=== PATIENT | female | born 1940 | race Hispanic/Latino ===

== ENCOUNTER 2017-06-16 18:07 | Emergency (ER) | payer MEDICARE ==
--- NOTE | 2017-06-16 20:36 | XRay Report ---
FINAL REPORT EXAM: XR ELBOW 2V RT HISTORY: right elbow pain sp fall TECHNIQUE: Right elbow two views 2 images PRIORS: None. FINDINGS: Bone mineralization appears within normal limits. There is a transverse intra-articular fracture of the proximal with approximately 10 millimeters of distraction. Soft tissue swelling is noted adjacent to the elbow. IMPRESSION: 1. Traumatic intra-articular fracture of the proximal ulna.
[2017-06-16] MEDS ORDERED: TYLENOL PO ONE (22:14)
--- NOTE | 2017-06-16 22:16 | Cat Scan Report ---
FINAL REPORT EXAM: CT HEAD/BRAIN WO CON HISTORY: status post [facility] patient is ciera TECHNIQUE: Noncontrast serial axial images from skull base to vertex PRIORS: None. FINDINGS: The study is slightly degraded by motion artifact. There is moderate atrophy. There is no mass effect or midline shift. There are no abnormal intra or extra-axial fluid collections. Lateral ventricles are enlarged, but this appears similar to the prior study. Basilar cisterns are patent. No acute intracranial hemorrhage is identified. Areas of relative hypodensity are seen in the white matter of the cerebral hemispheres. Atherosclerotic changes are noted. Visualized paranasal sinuses and mastoid air cells are well aerated. No acute osseous abnormality is identified. IMPRESSION: 1. No acute intracranial hemorrhage is identified. 2. Areas of relative hypodensity are seen in the white matter of the cerebral hemispheres. This is a nonspecific finding. It may be related to chronic ischemic change from small vessel disease. 3. Enlarged lateral ventricles are again noted. This is similar to the prior study.
[2017-06-16 22:35] VITALS: BP 117/54
--- NOTE | 2017-06-16 22:46 | XRay Report ---
FINAL REPORT EXAM: XR SHOULDER 2+V RT HISTORY: shoulder pain after fall TECHNIQUE: Right shoulder two views 2 images PRIORS: None. FINDINGS: Visualized portion of the right lung appears clear. Bone mineralization appears within normal limits. There is slightly irregular contour in the cortex along the distal aspect of the right clavicle. No gross abnormality seen in the soft tissues. IMPRESSION: 1. Possible minimally displaced fracture of the distal right clavicle.
--- NOTE | 2017-06-16 22:51 | XRay Report ---
FINAL REPORT EXAM: XR HIPS BILAT 2V W/PELVIS HISTORY: hip pain after fall TECHNIQUE: Single-view pelvis with additional views of the hips. 5 images PRIORS: None. FINDINGS: Sequelae from left hip arthroplasty are noted. Bone mineralization appears within normal limits. The pelvic ring appears intact. No acute fracture or subluxation is identified. No gross abnormality is seen in the soft tissues. IMPRESSION: 1. No acute osseous abnormality is identified.
--- NOTE | 2017-06-16 22:53 | XRay Report ---
FINAL REPORT EXAM: XR HUMERUS 1V RT HISTORY: arm pain after fall TECHNIQUE: Right humerus single-view 1 image PRIORS: Right elbow radiograph from 06/16/2017 FINDINGS: Visualized portion of the right lung is clear. Previously described proximal ulna fracture is re-identified. No acute fracture is identified in the humerus. Orthogonal view is not provided. The distal aspect of the humerus is obscured by the proximal radius and ulna. There is soft tissue swelling adjacent to the elbow. IMPRESSION: 1. Proximal ulna fracture is again noted. This is better evaluated in the dedicated elbow series. 2. No definite acute fracture is identified in the right humerus. Orthogonal view is not provided.
--- NOTE | 2017-06-16 22:55 | XRay Report ---
FINAL REPORT EXAM: XR CHEST 1V AP HISTORY: CP after fall TECHNIQUE: Single-view chest PRIORS: None. FINDINGS: No focal consolidations are seen in the lungs.The cardiomediastinal silhouette is within normal limits for size and contour. There is irregular contour of the distal right clavicle. IMPRESSION: 1. No definite radiographic evidence of acute cardiopulmonary disease. 2. Possible distal right clavicle fracture.
--- NOTE | 2017-06-16 23:10 | Emergency Department Report ---
ED Fall HPI - General Chief Complaint: Extremity Injury, Upper Stated Complaint: RT ARM PAIN Time Seen by Provider: 06/16/17 22:02 Source: EMS Mode of arrival: Stretcher Limitations: Altered Mental Status (chronic dementia) - History of Present Illness Initial Comments: 77 yo female with a past medical history of dementia, arthritis, hypertension, depression, anxiety, and hypothyroidism [facility] a ground-level fall and right elbow pain and swelling. custodial sheet not available for review. Patient unable to give any history of present illness due to advanced dementia. No details regarding head injury or LOC provided by [facility]. Patient does not appear any distress. Appears agitated, rapid intermittent pursed lip breathing which as per nursing EMS reports that as a home states this is her baseline - Related Data Home Medications Medication Instructions Recorded Confirmed Last Taken ALBUTEROL NEB's [Proventil] 2.5 mg IH BID PRN 04/24/16 04/24/16 04/24/16 ALBUTEROL NEB's [Proventil] 2.5 mg IH QDAY 04/24/16 04/24/16 04/24/16 ALPRAZolam [Xanax TAB] 0.25 mg PO Q6H PRN 04/24/16 04/24/16 04/24/16 Citalopram [celeXA] 40 mg PO QDAY 04/24/16 04/24/16 04/24/16 Docusate Sodium [Colace] 100 mg PO QDAY PRN 04/24/16 04/24/16 Unknown Donepezil [Aricept] 10 mg PO QHS 04/24/16 04/24/16 04/23/16 Fluticasone/Salmeterol [Advair 1 puff INHALATION QDAY 04/24/16 04/24/16 04/24/16 250-50 Diskus] Gabapentin [Neurontin] 300 mg PO QDAY 04/24/16 04/24/16 04/24/16 Levothyroxine [Synthroid] 100 mcg PO QAM 04/24/16 04/24/16 04/24/16 Lisinopril [Zestril] 20 mg PO QDAY 04/24/16 04/24/16 04/24/16 Meloxicam [Mobic] 15 mg PO QDAY 04/24/16 04/24/16 04/24/16 Olanzapine [OLANZapine] 2.5 mg PO QHS 04/24/16 04/24/16 04/22/16 Pregabalin [Lyrica] 75 mg PO QHS 04/24/16 04/24/16 04/23/16 Simvastatin [Zocor TAB] 20 mg PO QHS 04/24/16 04/24/16 04/24/16 buPROPion SR [Wellbutrin Sr] 150 mg PO BID 04/24/16 04/24/16 04/23/16 traMADol [Ultram] 50 mg PO Q6HR PRN 04/24/16 04/24/16 Unknown traZODone [Desyrel] 100 mg PO QHS 04/24/16 04/24/16 04/24/16 Allergies Allergy/AdvReac Type Severity Reaction Status Date / Time codeine Allergy Unknown Verified 04/24/16 19:15 ED Review of Systems ROS: Stated complaint: RT ARM PAIN Other details as noted in HPI Comment: Unobtainable due to pts medical conditions ED Past Medical Hx - Past Medical History Hx Hypertension: Yes Hx Arthritis: Yes Hx Psychiatric Treatment: Yes (depression, anxiety) Hx Dementia: Yes Additional medical history: neuropathy, hypothyroidism - Surgical History Hx Cholecystectomy: Yes - Social History Smoking Status: Unknown if ever smoked Substance Use Type: None - Medications Home Medications: Home Medications Medication Instructions Recorded Confirmed Last Taken Type ALBUTEROL NEB's [Proventil] 2.5 mg IH BID PRN 04/24/16 04/24/16 04/24/16 History ALBUTEROL NEB's [Proventil] 2.5 mg IH QDAY 04/24/16 04/24/16 04/24/16 History ALPRAZolam [Xanax TAB] 0.25 mg PO Q6H PRN 04/24/16 04/24/16 04/24/16 History Citalopram [celeXA] 40 mg PO QDAY 04/24/16 04/24/16 04/24/16 History Docusate Sodium [Colace] 100 mg PO QDAY PRN 04/24/16 04/24/16 Unknown History Donepezil [Aricept] 10 mg PO QHS 04/24/16 04/24/16 04/23/16 History Fluticasone/Salmeterol [Advair 1 puff INHALATION QDAY 04/24/16 04/24/16 History 250-50 Diskus] Gabapentin [Neurontin] 300 mg PO QDAY 04/24/16 04/24/16 04/24/16 History Levothyroxine [Synthroid] 100 mcg PO QAM 04/24/16 04/24/16 04/24/16 History Lisinopril [Zestril] 20 mg PO QDAY 04/24/16 04/24/16 04/24/16 History Meloxicam [Mobic] 15 mg PO QDAY 04/24/16 04/24/16 04/24/16 History Olanzapine [OLANZapine] 2.5 mg PO QHS 04/24/16 04/24/16 04/22/16 History Pregabalin [Lyrica] 75 mg PO QHS 04/24/16 04/24/16 04/23/16 History Simvastatin [Zocor TAB] 20 mg PO QHS 04/24/16 04/24/16 04/24/16 History buPROPion SR [Wellbutrin Sr] 150 mg PO BID 04/24/16 04/24/16 04/23/16 History traMADol [Ultram] 50 mg PO Q6HR PRN 04/24/16 04/24/16 Unknown History traZODone [Desyrel] 100 mg PO QHS 04/24/16 04/24/16 04/24/16 History ED Physical Exam - General Limitations: Altered Mental Status - Other Other exam information: General: No limitations, patient is alert in no acute distress Head exam: Atraumatic, normocephalic Eyes exam: Normal appearance, pupils equal reactive to light ENT: Moist mucous membrane, normal oropharynx Neck exam: Normal inspection, full range of motion, no meningismus nontender Respiratory exam: Clear to auscultation, intermittent rapid purse lip breathing which is apparently her baseline Cardiovascular: Normal rate and rhythm, normal heart sounds Abdomen: Soft, nondistended, and nontender, with normal bowel sounds, no rebound, or guarding Extremity: Full range of motion, ecchymosis to right elbow with swelling, 2+ radial pulses. Full range of motion of other extremities without pain Back: Normal Inspection, full range of motion, no tenderness Neurologic: Alert, oriented x0, 5/5 upper and lower extremity strength equal bilaterally, speaking constantly but not making any sense Psychiatric: Agitated Skin: Warm, dry, intact ED Course Vital Signs 06/16/17 06/16/17 19:39 22:34 Temperature 98.6 F Pulse Rate 61 75 Respiratory 22 24 Rate Blood Pressure 157/83 117/54 [Left] O2 Sat by Pulse 95 98 Oximetry - Consultations Consultation #1: 06/16/17 23:[address] Weinberg orthopedic [facility] Recommends orthopedic splint and outpatient follow-up ED Medical Decision Making - Radiology Data Radiology results: report reviewed chest x-ray: No acute cardiopulmonary disease. Possible distal right clavicle fracture Right shoulder x-ray: Possible minimally distal right clavicle fracture Right humerus x-ray: Proximal ulna fracture. Humerus unremarkable Bilateral hip x-rays were pelvis: No acute abnormality, left hip arthroplasty noted CT head: No acute findings. Relative hypodensities are seen in the white matter of the cerebral hemispheres. Enlarged lateral ventricles similar to prior study CT cervical spine: No acute findings - Medical Decision Making Patient placed in posterior splint and sling. Outpatient orthopedic referral will be provided. Tylenol given for pain in the ED Splint inspected and deemed effective - Differential Diagnosis fracture, contusion, sprain Critical Care Time: No Critical care attestation.: If time is entered above; I have spent that time in minutes in the direct care of this critically ill patient, excluding procedure time. ED Disposition Clinical Impression: Elbow fracture, right, Right clavicle fracture, Fall in elderly patient Disposition: DC-01 TO HOME OR SELFCARE Is pt being admited?: No Does the pt Need Aspirin: No Condition: Stable Instructions: Clavicle Fracture (ED), Elbow Fracture in Adults (ED), Fall Prevention for Older Adults (ED) Additional Instructions: Follow up with orthopedic doctor provided with orthopedic doctor of choice. Return if symptoms worsen. Take Tylenol or Motrin as needed for pain. You will likely need surgery for your fracture so follow-up is very important Referrals: JIMBO WEINBERG MD [Staff Physician] - 3-5 Days Time of Disposition: 00:38
--- NOTE | 2017-06-16 23:39 | Cat Scan Report ---
FINAL REPORT PROCEDURE: CT CERVICAL SPINE WO CON TECHNIQUE: Computerized tomography of the cervical spine was performed from the skull base to T1 without contrast material. HISTORY: s/p fall demented COMPARISON: No prior studies are available for comparison. FINDINGS: The skull base and foramen magnum are intact. Cervical vertebrae are intact. There are no fractures or malalignments. Disc spaces are normal. Facet joints are intact. Prevertebral soft tissues are normal in thickness. IMPRESSION: No acute bony or soft tissue abnormality is seen..
== END 2017-06-17 01:40 | disposition home or self-care (01) ==
LOC: ED 18:07
DX: S52.001A Unspecified fracture of upper end of right ulna, initial encounter for closed fracture (principal); S42.001A Fracture of unspecified part of right clavicle, initial encounter for closed fracture; I10 Essential (primary) hypertension; M19.90 Unspecified osteoarthritis, unspecified site; F32.9 Major depressive disorder, single episode, unspecified; F41.9 Anxiety disorder, unspecified; F03.90 Unspecified dementia, unspecified severity, without behavioral disturbance, psychotic disturbance, mood disturbance, and anxiety; E03.9 Hypothyroidism, unspecified; Z90.49 Acquired absence of other specified parts of digestive tract; Z88.6 Allergy status to analgesic agent; W18.39XA Other fall on same level, initial encounter; Y93.89 Activity, other specified; Y99.8 Other external cause status; Y92.89 Other specified places as the place of occurrence of the external cause
CPT/HCPCS: 70450; 71010; 72125; 73521